=== PATIENT | male | born 2000 | race Caucasian/White ===

== ENCOUNTER 2021-07-26 05:05 | Emergency (ER) | payer BC, OTHER ==
[~2021-07-26] VITALS: Ht 182.9 cm; Wt 68.0 kg
--- OUTSIDE RECORDS SUMMARY | 2021-07-26 05:12 | XMS REPORT ---
Author Author Helene Cortez Organization [facility] Address [address] [place], [place] [id number] Care Team Providers Care It Specialist Name Role Phone Alisa Cortez PCP Alisa Cortez PreferredProvider Allergies and Adverse Reactions Name Reaction Notes Trees C[place] Plan of Treatment Planned Activity Comments Planned Date Planned Time Plan/Goal 6 minute walk test 06/10/2020 12:00 AM Medications Active Name Start Date Estimated Completion Date SIG Co mments buspirone 5 mg oral tablet 06/16/2021 09/14/2021 take 1 tablet (5 mg) by oral route 2 times per day for 30 days venlafaxine 75 mg oral tablet extended release 24hr 06/16/2021 07/16/2021 take 1 tablet (75 mg) by oral route once daily in the morning at the same time each day with food for 30 days Concerta 27 mg oral tablet extended release 24hr 06/18/2021 07/18/2021 take 1 tablet (27 mg) by oral route once daily in the morning for 30 days Name Start Date Expiration Date SIG Comments prednisone 20 mg oral tablet 05/01/2020 05/11/2020 60 mg day 1, then 40 mg daily for 4 days, then 20 mg daily for 5 days doxycycline hyclate 100 mg oral tablet 05/01/2020 0 take 1 tablet by oral route 2 times a day for 7 days Symbicort 160-4.5 mcg/actuation inhalation HFA aerosol inhal er 06/10/2020 09/08/2020 inhale 2 puffs by inhalation route 2 pam es per day in the morning and evening for 30 days escitalopram oxalate oral tablet 10 mg 11/27/2020 12/27/2020 take 1 tablet (10 mg) by oral route once daily for 30 days Discontinued Name Start Date Discontinued Date SIG Comments albuterol sulfate 90 mcg/actuation inhalation HFA aerosol in haler 05/01/2020 02/19/2021 inhale 1 puff (90 mcg) by inhalation route every 4 jean pierre rs as needed Problem List Description Status Onset Anxiety and depression Active 12/03/2020 Attention deficit hyperactivity disorder (ADHD), predo minantly inattentive type Active 02/24/2021 Anxiety Active 03/23/2021 Vital Signs Date Time BP-Sys(mm[Hg] BP-Yumiko(mm[Hg]) HR(bpm) RR(rpm) Temp WT HT HC BMI BSA BMI Percentile O2 Sat(%) 06/24/2021 9:27:00 AM 130 mm[Hg] 84 mm[Hg] 89 {beats}/min 16 rpm 98.4 F 157.75 lbs 71 in 22.0014 kg/m2 1.8933 m2 0 % 99 % 03/19/2021 4:00:00 PM 118 mm[Hg] 80 mm[Hg] 93 {beats}/min 14 rpm 99.1 F 161 lbs 72 in 21.84 kg/m2 1.93 m2 0 % 98 % 02/19/2021 1:12:00 PM 138 mm[Hg] 76 mm[Hg] 84 {beats}/min 98.4 F 168 lbs 97 % 06/10/2020 1:44:00 PM 122 mm[Hg] 88 mm[Hg] 102 {beats}/min 7 2 in 98 % 05/01/2020 9:08:00 AM 130 mm[Hg] 84 mm[Hg] 95 {beats}/min 98.6 F 15 2 lbs 72 in 20.6147 kg/m2 1.8715 m2 21.3 % 98 % 08/19/2019 9:33:00 AM 106 mm[Hg] 90 mm[Hg] 76 {beats}/min 98.8 F 15 3 lbs 72 in 20.75 kg/m2 1.88 m2 28 % 98 % Social History Name Description Comments Tobacco Current some day smoker Social smoker History of Procedures Date Ordered Description Order Status 05/01/2020 12:00 AM ZC CHEST 2 VIEW Reviewed 05/08/2020 12:00 AM COVID-19 Testing Reviewed 05/11/2020 12:[address] THORAX W/O DYE Reviewed 05/11/2020 12:00 AM BREATHING CAPACITY TEST Reviewed 06/10/2020 12:00 AM COMPLETE CBC W/AUTO DIFF WBC Returned 06/10/2020 12:00 AM ASSAY THYROID STIM HORMONE Returned 07/14/2020 12:00 AM COVID-19 Testing Returned Results Summary Date and Description Results 05/08/2020 4:16 PM [id number] NOT DETECTED History Of Immunizations Not available. History of Past Illness Name Date of Onset Comments Generalized anxiety disorder Anxiety and depression 12/03/2020 Attention deficit hyperactivity disorder (ADHD), predo minantly inattentive type 02/24/2021 Anxiety 03/23/2021 Acute nonintractable headache, unspecified headache type Aug 19 2019 9:40AM Cough Apr 20 2020 8:53AM Fever Apr 20 2020 8:53AM Cough Apr 24 2020 1:08PM Nasal congestion Apr 24 2020 1:08PM Cough May 01 2020 9:12AM SOB (shortness of breath) May 01 2020 9:12AM Cough May 04 2020 6:07PM Shortness of breath May 04 2020 6:07PM Bronchitis May 01 2020 9:12AM Cough May 08 2020 11:12AM Shortness of breath May 08 2020 11:12AM Cough May 10 2020 2:26PM Shortness of breath May 10 2020 2:26PM SOB (shortness of breath) May 11 2020 10:47AM Shortness of breath Jun 10 2020 1:48PM Iron deficiency anemia Jun 10 2020 1:48PM Shortness of breath Jun 10 2020 4:44PM Close exposure to severe acute respiratory syndrome co ronavirus 2 (SARS-CoV-2) Jul 14 2020 4:50PM Loss of smell Jul 14 2020 4:50PM Taste disorder Jul 18 2020 8:28AM Shortness of breath Jul 18 2020 8:28AM Iron deficiency anemia Jul 18 2020 8:28AM Anxiety disorder, unspecified Nov 27 2020 11:05AM Major depressive disorder, single episode, unspecified Nov 27 2020 11:05AM Difficulty concentrating Dec 08 2020 2:21PM Anxiety disorder, unspecified Dec 08 2020 2:21PM Major depressive disorder, single episode, unspecified November [id number] 2:21PM Attention deficit hyperactivity disorder (ADHD), predo minantly inattentive type Feb 19 2021 1:16PM Attention deficit hyperactivity disorder (ADHD), predo minantly inattentive type Mar 19 2021 4:02PM Anxiety Aug 27 2021 4:02PM Anxiety disorder, unspecified May 19 2021 7:52AM Depression, unspecified May 19 2021 7:52AM Attention deficit hyperactivity disorder (ADHD), predo minantly inattentive type May 19 2021 7:52AM Anxiety disorder, unspecified Jun 24 2021 9:30AM Depression, unspecified Jun 24 2021 9:30AM Attention deficit hyperactivity disorder (ADHD), predo minantly inattentive type Jun 24 2021 9:30AM Payers Insurance Name Company Name Plan Name Plan Number Policy Number [employer] Group Number [id number] N/ A History of Encounters Visit Date Visit Type Provider 06/24/2021 Office visit Alisa VALENTINO 05/14/2021 Office visit Alisa VALENTINO 03/19/2021 Office visit Alisa VALENTINO 02/19/2021 Office visit Alisa VALENTINO 12/04/2020 Office visit Alisa VALENTINO 11/27/2020 Office visit Alisa VALENTINO 07/14/2020 Office visit Darryl Sandoval 06/10/[address] Mik Obregon DO 05/08/2020 Laboratory Alisa VALENTINO 05/07/2020 Office visit Alisa VALENTINO 05/01/2020 Office visit Alisa VALENTINO 04/30/2020 Office visit Alisa VALENTINO 04/24/2020 Office visit Alisa Andreight CHICHO 04/17/2020 Office visit Alisa Andreight CHICHO 08/19/2019 Office visit Alisa VALENTINO
--- OUTSIDE RECORDS SUMMARY | 2021-07-26 05:12 | XMS REPORT ---
Author Author Helene Cortez Organization [facility] Address [address] [place], [place] [id number] Care Team Providers Care Animal Trapper Name Role Phone Alisa Cortez PCP Alisa Cortez PreferredProvider Allergies and Adverse Reactions Name Reaction Notes Trees [place] Plan of Treatment Planned Activity Comments Planned Date Planned Time Plan/Goal 6 minute walk test 06/10/2020 12:00 AM Medications Active Name Start Date Estimated Completion Date SIG Co mments venlafaxine 75 mg oral tablet extended release 24hr 06/16/2021 07/16/2021 take 1 tablet (75 mg) by oral route once daily in the morning at the same time each day with food for 30 days Concerta 27 mg oral tablet extended release 24hr 06/18/2021 07/18/2021 take 1 tablet (27 mg) by oral route once daily in the morning for 30 days buspirone 5 mg oral tablet 07/09/2021 10/07/2021 take 1 tablet (5 mg) by oral route 3 times per day for 30 days Name Start Date Expiration [...] HC BMI BSA BMI Percentile O2 Sat(%) 07/09/2021 2:56:00 PM 130 mm[Hg] 84 mm[Hg] 79 {beats}/min 16 rpm 98.1 F 158 lbs 97 % 06/24/2021 9:27:00 AM 130 mm[Hg] 84 mm[Hg] [...] Returned 07/14/2020 12:00 AM COVID-19 Testing Returned 07/09/2021 12:00 AM X-RAY EXAM OF FOOT Reviewed Results Summary Date and Description Results 05/08/2020 4:16 PM [id number] NOT DETECTED History Of Immunizations Not available. [...] inattentive type Mar 19 2021 4:02PM Anxiety Mar 19 2021 4:02PM Anxiety disorder, unspecified May 19 2021 7:52AM Depression, unspecified May 19 2021 7:52AM Attention deficit hyperactivity disorder (ADHD), predo minantly inattentive type May 19 2021 7:52AM Anxiety disorder, unspecified Jun 24 2021 9:30AM Depression, unspecified Jun 24 2021 9:30AM Attention deficit hyperactivity disorder (ADHD), predo minantly inattentive type Jun 24 2021 9:30AM Right foot pain Jul 09 2021 2:59PM Anxiety Jul 09 2021 2:59PM Payers Insurance Name Company Name Plan Name Plan Number Policy Number [employer]ualber[employer] cy Group Number [id number] N/ A History of Encounters Visit Date Visit Type Provider 07/09/2021 Office visit Alisa VALENTINO 06/24/2021 Office visit Alisa VALENTINO 05/14/2021 Office [...] visit Alisa VALENTINO 04/24/2020 Office visit Alisa VALENTINO 04/17/2020 Office visit Alisa VALENTINO 08/19/2019 Office visit Alisa VALENTINO
[2021-07-26] MEDS ORDERED: ONDANSETRON 4 MG/2 ML (SDV) Z0FRAN IVP ONE (06:15)
[2021-07-26] MEDS ORDERED: NS IV 1000 ML 1,000 ML IV SCH (06:15)
[2021-07-26 06:19] LABS: BASOPHILS % (AUTO) 0 % (0-10); EOSINOPHILS # (AUTO) 0.2 10^3/uL (0.0-0.3); EOSINOPHILS % (AUTO) 1 % (0-10); HEMATOCRIT 49 % (40-54); HEMOGLOBIN 17.3 g/dL (13.3-17.7); LYMPHOCYTES # (AUTO) 0.5 10^3/uL (1.0-4.0); LYMPHOCYTES % (AUTO) 4 % (12-44); MEAN CORPUSCULAR HEMOGLOBIN 30 pg (25-34); MEAN CORPUSCULAR HGB CONC 35 g/dL (32-36); MEAN CORPUSCULAR VOLUME 85 fL (80-99); MONOCYTES # (AUTO) 0.7 10^3/uL (0.0-1.0); MONOCYTES % (AUTO) 5 % (0-12); NEUTROPHILS # (AUTO) 11.8 10^3/uL (1.8-7.8); NEUTROPHILS % (AUTO) 90 % (42-75); PLATELET COUNT 262 10^3/uL (130-400); WHITE BLOOD COUNT 13.1 10^3/uL (4.3-11.0)
[2021-07-26 06:21] LABS: ALBUMIN 4.9 GM/DL (3.2-4.5); CHLORIDE 103 MMOL/L (98-107); POTASSIUM 4.1 MMOL/L (3.6-5.0); SODIUM 137 MMOL/L (135-145)
--- NOTE | 2021-07-26 06:21 | ED GI ---
General Chief Complaint: Abdominal/GI Problems Stated Complaint: N/V,WEAK,DIZZY,SYNCOPE Nursing Triage Note: Pt arrives via POV from home for c/o N/V; onset 1999 last night. Source of Information: Patient Exam Limitations: No Limitations History of Present Illness Date Seen by Provider: Jul 26, 2021 Time Seen by Provider: 06:05 Initial Comments Patient is a 20-year-old male who presents to the emergency department with a chief complaint of nausea, vomiting, generalized weakness, diarrhea dizziness and a syncopal event about 20 minutes prior to arrival. Patient states onset of symptoms at 8 PM last night. He has not taken any medications for his symptoms. He states symptoms started rather suddenly. He had both vomiting and diarrhea throughout the night. Prior to arrival he had the urge to have a bowel movement and was sitting on the toilet and had a syncopal episode in which he fell off the toilet. States he hit his head. Has a mild headache. No reported fevers or chills, a little bit of runny nose no sore throat or earache. No chest pain or shortness of breath. No rashes joint pain or swelling. Denies black or bloody stool. Urinating normally. Covid vaccinated with [address] back in September. He has 2 roommates, no sick contacts that he is aware of. All other review of systems reviewed and negative except as stated Timing/Duration: 12 Hours Severity/Quality: Severe, Cramping Location: Generalized Abdomen Activities at Onset: None Associated Symptoms: Back Pain, Nausea/Vomiting, Syncope, Weakness Allergies and Home Medications Allergies Coded Allergies: No Known Drug Allergies (Unverified , 07/26/21) Patient Home Medication List Home Medication List Reviewed: Yes Review of Systems Review of Systems Constitutional: see HPI EENTM: No Symptoms Reported Respiratory: No Symptoms Reported Cardiovascular: No Symptoms Reported Gastrointestinal: Abdominal Pain, Nausea, Vomiting Genitourinary: No Symptoms Reported Musculoskeletal: no symptoms reported Skin: no symptoms reported Psychiatric/Neurological: Headache All Other Systems Reviewed Negative Unless Noted: Yes Past Eyfdspv-Etcack-Akegqu Hx Patient Social History Tobacco Use?: No Use of E-Cig and/or Vaping dev: No Substance use?: No Alcohol Use?: No Pt feels they are or have been: No Immunizations Up To Date Influenza Vaccine Up-to-Date: No; Not Current COVID19 Vaccine Speech Therapist: [address] Physical Exam Vital Signs Vital Signs - First Documented 07/26/21 05:35 Temp 36.9 Pulse 92 Resp 18 B/P (MAP) 129/80 (96) Pulse Ox 99 O2 Delivery Room Air Capillary Refill : Less Than 3 Seconds Height/Weight/BMI Height: '" Weight: lbs. oz. kg; 20.00 BMI Method: General Appearance: WD/WN, no apparent distress HEENT: PERRL/EOMI Neck: normal inspection Respiratory: lungs clear, normal breath sounds, no respiratory distress, no accessory muscle use Cardiovascular: regular rate, rhythm (90's) Gastrointestinal: soft, no organomegaly, other (abdominal wall (muscular) tenderness; no rebound or guarding hypoactive bowel sounds) Back: normal inspection Neurologic/Psychiatric: alert, normal mood/affect, oriented x 3 Skin: normal color, warm/dry Progress/Results/Core Measures Results/Orders Lab Results Laboratory Tests Test 07/26/21 05:40 07/26/21 05:45 Range/Units Influenza Type A Antigen NEGATIVE NEGATIVE Influenza Type B Antigen NEGATIVE NEGATIVE SARS-CoV-2 RNA (RT-PCR) Negative Negative White Blood Count 13.1 H 4.3-11.0 10^3/uL Red Blood Count 5.80 H 4.30-5.52 10^6/uL Hemoglobin 17.3 13.3-17.7 g/dL Hematocrit 49 40-54 % Mean Corpuscular Volume 85 80-99 fL Mean Corpuscular Hemoglobin 30 25-34 pg Mean Corpuscular Hemoglobin Concent 35 32-36 g/dL Red Cell Distribution Width 12.1 10.0-14.5 % Platelet Count 262 130-400 10^3/uL Mean Platelet Volume 9.0 9.0-12.2 fL Immature Granulocyte % (Auto) 1 % Neutrophils (%) (Auto) 90 H 42-75 % Lymphocytes (%) (Auto) 4 L 12-44 % Monocytes (%) (Auto) 5 0-12 % Eosinophils (%) (Auto) 1 0-10 % Basophils (%) (Auto) 0 0-10 % Neutrophils # (Auto) 11.8 H 1.8-7.8 10^3/uL Lymphocytes # (Auto) 0.5 L 1.0-4.0 10^3/uL Monocytes # (Auto) 0.7 0.0-1.0 10^3/uL Eosinophils # (Auto) 0.2 0.0-0.3 10^3/uL Basophils # (Auto) 0.0 0.0-0.1 10^3/uL Immature Granulocyte # (Auto) 0.1 0.0-0.1 10^3/uL Sodium Level 137 135-145 MMOL/L Potassium Level 4.1 3.6-5.0 MMOL/L Chloride Level 103 98-107 MMOL/L Carbon Dioxide Level 24 21-32 MMOL/L Anion Gap 10 5-14 MMOL/L Blood Urea Nitrogen 15 7-18 MG/DL Creatinine 1.08 0.60-1.30 MG/DL Estimat Glomerular Filtration Rate 87 BUN/Creatinine Ratio 14 Glucose Level 115 H 70-105 MG/DL Calcium Level 9.5 8.5-10.1 MG/DL Corrected Calcium 8.5-10.1 MG/DL Total Bilirubin 0.7 0.1-1.0 MG/DL Aspartate Amino Transf (AST/SGOT) 18 5-34 U/L Alanine Aminotransferase (ALT/SGPT) 30 0-55 U/L Alkaline Phosphatase 87 40-136 U/L Total Protein 8.2 6.4-8.2 GM/DL Albumin 4.9 H 3.2-4.5 GM/DL My Orders Orders - MEMO AGUILAR MD Ed Iv/Invasive Line Start (07/26/21 06:07) Cbc With Automated Diff (07/26/21 06:07) Comprehensive Metabolic Panel (07/26/21 06:07) Covid 19 Inhouse Test (07/26/21 06:07) Isolation Central Supply Req (07/26/21 06:07) Ns Iv 1000 Ml (Sodium Chloride 0.9%) (07/26/21 06:15) Ondansetron Injection (Zofran Injectio (07/26/21 06:15) Influenza A & B Antigens (07/26/21 05:40) Manual Differential (07/26/21 05:45) Medications Given in ED Current Medications Medications Dose Ordered Sig/Rowena Route Start Time Stop Time Status Last Admin Dose Admin Ondansetron HCl 8 mg ONCE ONCE IVP 07/26/21 06:15 07/26/21 06:16 DC 07/26/21 06:20 8 MG Vital Signs/I&O 07/26/21 05:35 Temp 36.9 Pulse 92 Resp 18 B/P (MAP) 129/80 (96) Pulse Ox 99 O2 Delivery Room Air Blood Pressure Mean: 96 Progress Progress Note : Time: 07:05 Progress Note Patient has completed a liter of fluids, reevaluated states that he feels "amaz ing". No more nausea. Giving him a little ice water. We will send a prescription for Zofran to his pharmacy. Patient is instructed on return precautions he verbalizes understanding. Likely just a stomach virus that has caused his symptoms. Initial Covid test is negative, this will reflex to a PCR. Patient is counseled on masking, social distancing/quarantine until he gets the PCR test result within the next 24 hours. He verbalized understanding all questions are sought and answered. Departure Impression Primary Impression: Gastroenteritis Disposition: 01 HOME, SELF-CARE Condition: Stable Departure-Patient Inst. Decision time for Depature: 07:07 Referrals: [facility] [place] SNEHA,LOCAL PHYSICIAN (PCP) Primary Care Physician Patient Instructions: Viral Gastroenteritis, Adult (DC) Add. Discharge Instructions: Drink plenty of fluids to stay well-hydrated. Take the Zofran, 4 mg tablets every 8 hours as needed for nausea. If you develop a fever, cough, shortness of breath or any other emergent concerning symptoms please come back to the emergency room for reevaluation. You should continue to mask, social distance/quarantine until you receive your PCR Covid test results within the next 24 hours. Follow-up with a primary care physician as needed. Scripts Ondansetron (Ondansetron Odt) 4 Mg Tab.rapdis 4 MG PO Q8H, #15 TAB Prov: MEMO AGUILAR MD 07/26/21 MEMO AGUILAR MD Jul 26, 2021 06:21
[2021-07-26 06:23] LABS: CALCIUM 9.5 MG/DL (8.5-10.1)
[2021-07-26 06:24] LABS: GLUCOSE 115 MG/DL (70-105); TOTAL PROTEIN 8.2 GM/DL (6.4-8.2)
[2021-07-26 06:25] LABS: CARBON DIOXIDE 24 MMOL/L (21-32)
[2021-07-26 06:26] LABS: BILIRUBIN,TOTAL 0.7 MG/DL (0.1-1.0)
[2021-07-26 06:27] LABS: ALKALINE PHOSPHATASE 87 U/L (40-136); CREATININE SERUM 1.08 MG/DL (0.60-1.30); GFR ESTIMATED 87
[2021-07-26 06:28] LABS: BUN/CREATININE RATIO 14
[2021-07-26 06:30] LABS: ALANINE AMINOTRANSFERASE 30 U/L (0-55)
[2021-07-26 07:08] LABS: BAND NEUTROPHILS 13 %; LYMPHOCYTES % (MANUAL) 3 %; METAMYELOCYTES % 1 %; MICROCYTOSIS SLIGHT; MONOCYTES % (MANUAL) 6 %; NEUTROPHILS % (MANUAL) 77 %
[2021-07-26] MEDS ORDERED: ONDA4TAB11 PO (07:09)
[2021-07-26 07:26] VITALS: BP 121/76
== END 2021-07-26 07:27 | disposition home or self-care (01) ==
LOC: ER 05:09
DX: K52.9 Noninfective gastroenteritis and colitis, unspecified (principal); Z20.822 Contact with and (suspected) exposure to COVID-19
CPT/HCPCS: 36415; 80053; 85007; 85027; 87635; 87636; 87804